=== PATIENT | male | born 1980 | race Two or more races ===

== ENCOUNTER 2025-02-06 10:55 | Emergency (ER) | payer BC, SELFPAY ==
[2025-02-06 10:56] VITALS: BMI 35.5
[2025-02-06 11:15] VITALS: BP 133/81; PULSE 68; RESP 16; TEMP 36.9; O2SAT 97
--- NOTE | 2025-02-06 11:22 | XR_ITS ---
Examination: CT abdomen and pelvis without contrast. Coronal 3-D reconstructions. Sagittal 2-D reconstructions. Date and time of exam:February 06, 2025 1136 hours Comparison September 05, 2019 INDICATIONS: Left-sided flank pain today, history kidney stones CTDI: vol (mGy): 15.6 DLP: (mGycm): 1121 Technique: Axial images of the abdomen have been obtained, 3 mm slice thickness Intravenous contrast material has not been administered. Low dose protocols were performed. One or more of the following dose reduction techniques were used; automated exposure control, adjustment of the mA and/or KV according to patient size, use of iterative reconstruction technique. Findings: Fatty infiltration throughout the liver no focal liver lesions Absent gallbladder Spleen not enlarged No pancreatic or adrenal mass 2 mm lower pole left renal calculus, 1 mm lower pole right renal calculus Minimal left hydronephrosis secondary to 2 mm proximal left ureteral calculus image 128 No bowel obstruction Absent appendix No bladder mass or bladder calculi No prostatomegaly Mild osteopenia IMPRESSION: Minimal left hydronephrosis secondary to 2 mm proximal left ureteral calculus
--- NOTE | 2025-02-06 11:23 | PD.EDBACK ---
ED Back Injury Pain RME/HPI General Chief Complaint: Back Pain/Injury Stated Complaint: LOWER BACK LEFT FLANK PAIN SINCE AM Time Seen by Provider: 02/06/25 10:59 Arrival date/time: 02/06/25 10:55 RME / HPI RME / HPI Narrative: 45-year-old male patient with no significant medical history except for history of kidney stones, came in for evaluation regarding sudden onset of left flank pain. Onset of symptoms earlier this morning, described as sharp pain, severity 8 out of 10 associated with nausea. Patient denies any vomiting denies any fever denies any materia frequency or other complaints. No medication was taken prior to arrival. Related Data Previous Rx's ?Medication ?Instructions ?Recorded ketorolac 10 mg tablet 10 mg PO Q8H PRN pain 4 days #20 02/06/25 tabs tamsulosin 0.4 mg capsule (Flomax) 0.4 mg PO QDAY #10 caps 02/06/25 Allergies Allergy/AdvReac Type Severity Reaction Status Date / Time No Known Allergies Allergy Verified 02/06/25 10:59 Review of Systems Review of Systems Narrative Review of Systems: Review of system reviewed and within normal limits except mentioned in HPI ED Exam Narrative Physical exam: VITAL SIGNS: Reviewed. GENERAL APPEARANCE: Alert and interactive, follows commands, no acute distress, HEAD AND FACE: Non-traumatic. ENT: PERRL, pink conjunctivitis, eyelid no trauma, Mucous membrane moist. NECK: Supple, nontender, no nuchal rigidity. CHEST: No tenderness, no crepitus, no paradoxical movement, no retractions. LUNGS: Clear, well ventilated, symmetric, no rales, no wheezing, no ronchi, no stridor, good breath sounds bilaterally. HEART: Regular rate, regular rhythm, no murmur, no gallops. ABDOMEN: Soft, positive bowel sounds, nondistended, no guarding, nontender, no rebound, no masses, left flank tenderness RECTAL: Deferred. GENITAL: Deferred. NEUROLOGICAL: Gross motor function intact sensory function intact, Appropriate for age. MUSCULOSKELETAL: low back nontender, full range of motion. EXTREMITIES: Nontender, full range of motion. SKIN: Color pink, dry, no rash, no lacerations, no abrasions, no contusions. LYMPHATICS: Deferred. Course Quality Measures none Orders Category Date Time Status CT abdomen pelvis wo con Stat Exams 02/06/25 11:22 Completed CBC Stat Lab 02/06/25 11:43 Completed Comprehensive Metabolic Panel Stat Lab 02/06/25 11:43 Completed Lipase Stat Lab 02/06/25 11:43 Completed Prothrombin Time with INR Stat Lab 02/06/25 11:43 Completed UA, C/S IF [Urinalysis, C/S if Indicated] Stat Lab 02/06/25 12:00 Completed Ketorolac Inj [Toradol Inj] Med 02/06/25 11:22 Discontinued 30 mg IM X1 ONE Ondansetron Odt [Zofran Odt] Med 02/06/25 11:22 Discontinued 4 mg PO X1 ONE Vital Signs Vital signs: Vital Signs Temperature 98.4 F 02/06/25 11:15 Pulse Rate 68 02/06/25 11:15 Respiratory Rate 16 02/06/25 11:15 Blood Pressure 133/81 H 02/06/25 11:15 Pulse Oximetry (%) 97 02/06/25 11:15 Oxygen Delivery Method Room Air 02/06/25 11:15 Back Pain / Injury MDM Narrative [facility] Narrative:: 45-year-old male patient with no significant medical history except for history of kidney stones, came in for evaluation regarding sudden onset of left flank pain. Onset of symptoms earlier this morning, described as sharp pain, severity 8 out of 10 associated with nausea. Patient denies any vomiting denies any fever denies any materia frequency or other complaints. No medication was taken prior to arrival. Laboratory workup all came back unremarkable. Except urinalysis positive for hematuria no UTI. CT scan of the abdomen showed 2 mm left ureteral stone otherwise unremarkable except for bilateral small 2 and 1 mm kidney stones. Results discussed with the patient patient was also given a copy of his CT scan. Patient was advised to see urologist outpatient. Patient agrees with the plan Patient data External records reviewed:: None Clinical information provided by:: none Social determinants that could affect healthcare access:: none Patient has the following chronic illnesses:: None How is presenting disease/condition affected by chronic disease/condition?: no chronic disease Evaluation data The following diagnostics were reviewed and interpreted by me:: lab results and radiology exam(s) Lab and/or radiology exams considered but not ordered:: None Interpretation Summary: See results MDM Medications / Prescriptions Medications or Prescriptions considered but not ordered:: None Medication administrations:: Medication Administration History Discontinued Medications Ketorolac Tromethamine (Ketorolac Inj 60 Mg/2 Ml Vial) 30 mg IM X1 ONE Stop: 02/06/25 11:23 Last Admin: 02/06/25 11:43 Dose: 30 mg Documented By: ILIA Ondansetron HCl (Ondansetron Odt 4 Mg Tabrap) 4 mg PO X1 ONE; Protocol Stop: 02/06/25 11:23 Last Admin: 02/06/25 11:43 Dose: 4 mg Documented By: ILIA Toradol Zofran Consultations Consultation(s) initiated? (list below): No Diagnosis Differential diagnosis back pain/injury: sciatica, renal colic and other (Ureterolithiasis, kidney stone) Most likely diagnosis given after review of the tests above:: Ureterolithiasis, bilateral nephrolithiasis Admission Indicated Admission indicated?: not indicated Explain why admission is indicated or not indicated:: Stable Admission Request Was there a request for admission?: No Disposition Plan Disposition Plan: Discharge Discharge Attestation Discharge Attestation: The patient was given an opportunity to ask questions and understood the discharge instructions. Discharge instructions specifically effects, indications for sooner follow up or return to the emergency department, and the expected course of current diagnosis. Patient condition: Stable Discharge Plan Plan Patient Disposition: HOME (Self Care) Discharge Disposition comment: Stable Prescriptions/Referrals Prescriptions/Med Rec: New ketorolac 10 mg tablet 10 mg PO Q8H PRN (Reason: pain) 4 Days Qty: 20 0RF tamsulosin [Flomax] 0.4 mg capsule 0.4 mg PO QDAY Qty: 10 0RF Referrals: No Primary/Family,Physician [Primary Care Provider] - In 1 week Problem List Clinical Impression: Ureterolithiasis, Bilateral nephrolithiasis Patient/Caregiver Discharge Instructions Discharge Activity: activity as tolerated Education Materials: Exercise to Help Your Kidneys, Identifying Kidney Stones Additional Instructions: Thank you for the opportunity for serving you today. You are stable for discharged . You are advised to: Follow-up with your PCP in 1 to 2 days Return to ED for worsening of symptoms Increase oral fluids Take medication as prescribed As your PCP to refer you to a urologist Print Language: Thai Stand Alone Forms: Luana Award Info., Patient Portal Info Letter PA/MAMTA Supervising Physician FLACO/MAMTA Supervising Physician: MD Amairani
[2025-02-06] MEDS: KETOROLAC INJ 60 MG/2 ML VIAL 30 MG IM (11:43)
[2025-02-06] MEDS: ONDANSETRON ODT 4 MG TABRAP PO (11:43)
[2025-02-06 11:48] LABS: Hematocrit 42.1 % (41.0-53.0); Hemoglobin 14.5 g/dL (13.5-16.0); Mean Corpuscular HGB Conc 34.4 g/dl (31.0-37.0); Mean Corpuscular Hemoglobin 30.9 pg (25.0-35.0); Mean Corpuscular Volume 90 fL (80-100); Neutrophils % (Auto) 62 % (37-80); Platelet Count 266 Thou/mm3 (140-440); RDW Standard Deviation 44.3 fL (35.1-43.9); Red Blood Count 4.69 Miln/mm3 (4.50-5.90); White Blood Count 6.9 Thou/mm3 (3.8-10.6)
[2025-02-06 11:49] LABS: Basophils % (Auto) 0 % (0-2.5); Eosinophils # (Auto) 0.1 Thou/mm3 (0.0-0.5); Eosinophils % (Auto) 1 % (0-10); Immature Granulocytes % (Auto) 0 % (0-0); Immature Granulocytes Auto 0.03 Thou/mm3 (0.00-0.00); Lymphocytes % (Auto) 28 % (10-50); Monocytes # (Auto) 0.5 Thou/mm3 (0.0-0.8); Monocytes % (Auto) 7 % (0-12); Neutrophils # (Auto) 4.3 Thou/mm3 (1.8-7.7); Nucleated Red Blood Cell % 0 /100 WBC (0)
[2025-02-06 12:04] LABS: Prothrombin Time 11.1 Seconds (9.0-12.2)
[2025-02-06 12:07] LABS: Collection Type, Urine Clean Catch
[2025-02-06 12:10] LABS: Alanine Aminotransferase 22 U/L (10-49); Albumin, Serum 4.4 gm/dL (3.5-5.0); Albumin/Globulin Ratio 1.6 (1.2-2.2); Alkaline Phosphatase 77 U/L (46-116); Anion Gap 5 (7-16); Aspartate Amino Transferase 17 U/L (0-34); BUN/Creatinine Ratio 16 Ratio (12-20); Bilirubin,Total 0.4 mg/dL (0.3-1.2); Blood Urea Nitrogen 13 mg/dL (9-23); Calcium 9.1 mg/dL (8.3-10.6); Calcium (Corrected) 9.1 mg/dL (8.5-10.1); Carbon Dioxide 29.9 mMol/L (20.0-31.0); Chloride 104 mMol/L (98-107); Creatinine (Component) 0.8 mg/dL (0.6-1.3); Estimated Creatinine Clearance 177.9 mL/min (>60); Globulin 2.7 gm/dL (2.3-3.5); Glucose 114 mg/dL (74-106); Lipase 44 U/L (12-53); Osmolality,Calculated 278 (275-295); Potassium 4.3 mMol/L (3.4-5.1); Sodium 139 mMol/L (136-145); Total Protein 7.1 gm/dL (5.7-8.2); eGFR > 60 See Note
[2025-02-06 12:13] LABS: Bilirubin,Urine Negative (Negative); Blood,Urine 2+ (Negative); Clarity,Urine Clear (Clear/Hazy); Color,Urine Lt-Yellow (Lt Yel-Yel); Culture Indicated,Urine Not Indicated; Glucose, Urine Negative (Negative); Ketones,Urine Negative (Negative); Leukocyte Esterase,Urine Negative (Negative); Nitrite,Urine Negative (Negative); Protein,Urine Negative (Neg - Trace); RBC,Urine 144 /hpf (0-3); Specific Gravity,Urine 1.022 (1.001-1.035); Squamous Epithelial Cell,Urine 1 /hpf (0-5); Urobilinogen,Urine Negative mg/dL (0.0-1.0); WBC,Urine 1 /hpf (0-5)
[2025-02-06 12:36] VITALS: BP 129/81; PULSE 65; RESP 17; TEMP 36.6; O2SAT 96
== END 2025-02-06 12:37 | disposition home or self-care (01) ==
PROVIDERS: Nurse Practitioner Family; Emergency Provider Emergency Medicine
DX: N20.2 Calculus of kidney with calculus of ureter (principal); M85.88 Other specified disorders of bone density and structure, other site
CPT/HCPCS: 36415; 74176; 80053; 81001; 83690; 85025; 85610; 96372; 99284; J1885; Q0162

== ENCOUNTER 2025-06-16 19:31 | Emergency (ER) | payer OTHER, SELFPAY ==
[2025-06-16 19:31] VITALS: BMI 35.5
--- NOTE | 2025-06-16 19:36 | XR_ITS ---
Examination: Hand, right 3 views Technique: Hand AP, oblique, lateral 3 views Date and time of exam: June 16, 2025, 1904 hours INDICATION: Patient fell today with injury to the hand, hand pain. FINDINGS: No acute fracture No dislocation No foreign body IMPRESSION: No acute fracture
[2025-06-16 19:48] VITALS: BP 130/82; PULSE 70; RESP 20; TEMP 36.7; O2SAT 97
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
== END 2025-06-16 22:31 | disposition home or self-care (01) ==
PROVIDERS: Emergency Provider Emergency Medicine
DX: S60.419A Abrasion of unspecified finger, initial encounter (principal); Z23 Encounter for immunization
CPT/HCPCS: 90715; 73120; 99281; A9270